=== PATIENT | male | born 1980 | race Caucasian/White ===

== ENCOUNTER → 2019-10-22 | Outpatient (CLI) | payer BC | LOC: ZCOL.LAB 20:05 | DX: U07.1 COVID-19 (principal) ==

== ENCOUNTER 2022-02-10 14:42 | Emergency (ER) | payer SELFPAY ==
[~2022-02-10] VITALS: Ht 185.4 cm; Wt 154.5 kg
[2022-02-10 15:00] VITALS: BP 148/83; PULSE 93; TEMP 98.2
[2022-02-10] MEDS ORDERED: CEPHALEXIN500 M1 PO (17:01)
[2022-02-10] MEDS ORDERED: PERCOCET 325 MG1 TA2 PO (17:01)
== END 2022-02-10 17:24 | disposition home or self-care (01) ==
LOC: COL.ER 14:42
DX: S61.310A Laceration without foreign body of right index finger with damage to nail, initial encounter (principal); F17.200 Nicotine dependence, unspecified, uncomplicated; Z23 Encounter for immunization; Z28.310 Unvaccinated for COVID-19; W23.0XXA Caught, crushed, jammed, or pinched between moving objects, initial encounter; Y92.59 Other trade areas as the place of occurrence of the external cause; Y99.0 Civilian activity done for income or pay